=== PATIENT | female | born 1970 | race Caucasian/White ===

== ENCOUNTER 2024-05-30 07:58 | Emergency (ER) | payer BC, SELFPAY ==
[2024-05-30] VITALS (7 sets, daily range): BP systolic 134–146; BP diastolic 79–99; BMI 26.5
--- NOTE | 2024-05-30 08:41 | EDRN ---
Torin LAM currently at the pts bedside
--- NOTE | 2024-05-30 08:52 | ED.GENMED ---
History of Present Illness
General
Chief Complaint: Headache
Source: patient
Time Seen by Provider: 05/30/24 08:28
History of Present Illness
History of Present Illness:
54-year-old female with past medical history of migraines and hyperlipidemia presenting to the ER for evaluation after she woke around 530 this morning with a headache noting it to be left-sided, dull throbbing and nonradiating but was able to go
back to sleep, woke up again around 645 and noticed the left side of her face felt a little tingly with similar sensation in her fingertips and felt as if she were drifting when she attempted to ambulate. Patient states that while most of the
symptoms have improved she currently just feels 'off' and still with the mild headache. Patient states that these symptoms are different than her typical migraine as she notes her migraines are usually ocular accompanied with floaters/visual
disturbance and then experiencing the headache. She did not take anything for her symptoms prior to arrival and is currently denying anything for her headache. No fevers or recent illnesses. She has no other concerns at this time. Family history
noncontributory. Social history was noted for occasional alcohol use, patient states that she did share a bottle of wine with her significant other last night which is not atypical for her.
Past History
Past History
ED Past Medical History: Hypercholesterolemia and Other (migraines)
ED Past Surgical History: Cholecystectomy
Social History
Tobacco: Non-smoker
Alcohol: Occasional
Drug: None
Personal:
Living: with family
Employment: Employed
Review of Systems
Review of Systems
All Other Systems: ROS reviewed and negative except as documented in HPI and ROS
Phy Exam
Physical Exam
Physical Exam:
GENERAL: Alert , in no apparent distress, smiling and pleasant
HEAD: NCAT
EYE: clear conjunctiva
NECK: Supple, no significant adenopathy.
ENT: mmm.
CARDIAC: Regular rate and rhythm, no murmur .
LUNGS: Clear breath sounds bilaterally, no acute respiratory distress, no wheezes/rales/rhonchi
ABDOMEN: Soft, without focal tenderness, no r/g, no cvat
NEUROLOGICAL: Alert and oriented, no focal neuro deficits, DILLON x 4, strength and sensation intact and equal bilateral, no ataxia, no dysmetria, no dysarthria, no facial drooping
SKIN: Warm and dry, skin intact.
MUSCULOSKELETAL: No edema, well perfused.
PSYCH: Normal and appropriate interaction.
Scores
NIH Stroke Score
Level of Consciousness: 0 - Alert
LOC Questions: 0-Answers both correctly
LOC Commands: 0-Performs both correctly
Best Horizontal Gaze: 0-Normal
Visual Mccarty: 0=Normal, no visual loss
Facial Palsy: 0=Normal, symmetrical
Motor - Right Arm: 0=No drift 10 seconds
Motor - Left Arm: 0=No drift 10 seconds
Motor - Right Le-No drift 5 seconds
Motor - Left Le-No drift 5 seconds
Limb Ataxia: 0-Absent
Sensation: 0-Normal
Best Language: 0-No aphasia
Dysarthria: 0-Normal
Extinction and Inattention: 0-No abnormality
Total Score:: 0
Heart Failure Risk
Heart Failure Risk Score: Not Applicable
Heart Score for Chest Pain Patients
STEMI patient?: Not applicable
Withdrawal Assessment of Alcohol
Withdrawal Assessment Completed?: Not applicable
Course
Orders/Labs/Results
Orders:
Orders
05/30/24 08:38
CT Head W/o Iv Contrast Urgent
Comment:
Reason For Exam: headache with numbness/tingling
05/30/24 08:39
Complete Blood Count/With Diff Urgent
Comprehensive Metabolic Panel Urgent
PT/INR [Prothrombin Time] Urgent
PTT Urgent
05/30/24 09:27
0.9% Sodium Chloride 1000 ml [Nss] 1,000 ml IV BOLUS
Diphenhydramine [Benadryl] 25 mg IV NOW STA
Ketorolac [Toradol] 30 mg IV NOW STA
Metoclopramide [Reglan] 10 mg IV NOW STA
Abnormal Lab Results
05/30/24
08:39
RBC 3.98 L 10^6/uL
(4.20-5.40)
MCH 33.9 H pg
(27.0-31.0)
05/30/24 08:39
05/30/24 08:39
Vital Signs
Initial and Last Documented VS:
Initial Vital Signs
Temp Pulse Resp BP Pulse Ox
98.5 F 80 20 146/99 98
05/30/24 07:59 05/30/24 07:59 05/30/24 07:59 05/30/24 07:59 05/30/24 07:59
Last Documented Vital Signs
Temp Pulse Resp BP Pulse Ox
97.5 F 72 15 134/84 98
05/30/24 12:02 05/30/24 12:02 05/30/24 12:02 05/30/24 12:02 05/30/24 12:02
MDM/Problems Addressed
Differential Diagnosis Includes:
migraine, TIA, CVA, ICH, mass/malignancy
MDM/Problems Addressed:
54-year-old female presenting to the ER for evaluation of headache that began this morning around 530, around 645 noticed some facial paresthesia and paresthesia in her fingertips which now seem to be resolved although the patient still notes she
feels 'off'. No focal findings on exam and an NIH score of 0. No stroke alert was called as patient does not have any objective findings. I do suspect symptoms are most likely related to an atypical migraine presentation. Patient declining any
medications for her symptoms presently. Will check labs and CT imaging. Disposition pending.
Chronic conditions affecting care: Neurological disorder (Migraines)
*Radiology
Radiology exam reviewed: radiology read reviewed
*Pulse Oximetry
Patient hypoxic: no
*Critical Care Note
Total Time (30-74mins, 75-104mins- exclusive of procedures): Not Applicable
Patient Management
Escalation/DeEscalation of care consider admission/obs:
He patient CT scans without any significant abnormalities. Upon reevaluation patient was requesting something for headache. Migraine cocktail consisting of Reglan, Benadryl and Toradol ordered. Following these medications patient noted
significant relief and full resolution of symptoms. She feels comfortable being discharged home. Again I do suspect an atypical migraine is the most likely cause of her symptoms today. She is aware of return precautions to the ER. Stable for
discharge home.
ED Attending Note
-
Portions of this chart may have been created with voice recognition software.� Occasional wrong word or��sound alike� substitutions may have occurred due to the inherent limitations of voice recognition software.
Discharge Plan
Departure
Patient Disposition: Home (Routine Discharge)
Date of Disposition: 05/30/24
Time of Disposition: 11:38
Patient with high blood pressure during this ER visit?: Yes
Discharge Problem:
Headache
Instructions: Headache, Adult (DC)
Referrals:
Cristina Eli CRNP [Family Provider] -
Interventions
Interventions:
*Risk Screen - Suicide Last Done: 05/30/24 08:04
*General Assessment Last Done: 05/30/24 12:02
*Neglect/Abuse Screening Last Done: 05/30/24 08:32
*ED- Fall Risk Assessment Last Done: 05/30/24 08:32
*ED COVID-19 Vaccine History Last Done: 05/30/24 08:32
*Nursing Disposition Last Done: 05/30/24 12:02
ED- Neurological Assessment Last Done: 05/30/24 08:32
Discharge Date and Time
Discharge Date/Time: 05/30/24 12:06
Print Language: KENYAN
[2024-05-30 08:55] LABS: % Basophils 0.3 % (0-2); % Eosinophils 0.8 % (0-6); % Immature Granulocytes 0.2 % (0-0.5); % Lymphocytes 47.7 % (20.5-51.1); % Monocytes 5.9 % (1.7-9.3); % Neutrophils 45.1 % (42.2-75.2); Absolute Eosinophils 0.1 10^3/uL (0-0.7); Absolute Lymphocytes 2.9 10^3/uL (1.2-3.4); Absolute Monocytes 0.4 10^3/uL (0.1-0.6); Absolute Neutrophils 2.7 10^3/uL (1.4-6.5); Hematocrit 39.2 % (37.0-47.0); Hemoglobin 13.5 g/dL (12.0-16.0); Mean Corp Hgb Conc. 34.4 g/dL (33.0-37.0); Mean Corpuscular Hgb 33.9 pg (27.0-31.0); Mean Corpuscular Volume 98.5 fL (81.0-99.0); Mean Platelet Volume 9.8 fL (7.4-10.4); Nucleated Red Blood Cells % 0 %; Platelet Count 243 10^3/uL (130-400); Red Blood Cell Count 3.98 10^6/uL (4.20-5.40); Red Cell Dist. Width 11.6 % (11.5-14.5); White Blood Cell Count 6.1 10^3/uL (4.8-10.8)
[2024-05-30 09:04] LABS: ALT (SGPT) 14 U/L (0-35); AST (SGOT) 19 U/L (14-36); Albumin 4.5 g/dl (3.5-5.0); Alkaline Phosphatase 59 U/L (38-126); Blood Urea Nitrogen 13 mg/dl (7-17); Calcium 9.8 mg/dl (8.4-10.2); Carbon Dioxide 23 mmol/L (22-30); Chloride 107 mmol/L (98-107); Estimated Creatinine Clearance 87 ml/min; Glucose 99 mg/dl (70-99); Potassium 4.4 mmol/L (3.5-5.1); Sodium 141 mmol/L (135-145); Total Bilirubin 0.6 mg/dl (0.2-1.3); Total Protein 7.3 g/dl (6.3-8.2); eGFR > 60.00
[2024-05-30] MEDS: TORADOL 30 MG IV (09:34)
[2024-05-30] MEDS: BENADRYL 25 MG IV (09:34)
[2024-05-30 09:35] LABS: INR 0.93; PT 12.7 Sec (11.4-14.6)
[2024-05-30] MEDS: REGLAN 10 MG IV (09:35)
[2024-05-30] MEDS: NSS 1000 IV (09:35)
[2024-05-30 09:36] LABS: APTT 25.8 Sec (23.4-35.0)
== END 2024-05-30 12:06 | disposition home or self-care (01) ==
LOC: EMR 07:58
PROVIDERS: Physician Assistant Medical; EMERGENCY PHYSICIAN Emergency Medicine; FAMILY PHYSICIAN Nurse Practitioner Adult Health
DX: R51.9 Headache, unspecified (principal); E78.00 Pure hypercholesterolemia, unspecified; Z90.49 Acquired absence of other specified parts of digestive tract
CPT/HCPCS: 96374; 96375; 96361; 99284; 70450; 80053; 85025; 85610; 85730

== ENCOUNTER 2024-05-31 15:04 | Inpatient (IN) | payer BC, SELFPAY ==
[2024-05-31] VITALS (11 sets, daily range): BP systolic 147–190; BP diastolic 92–113; BMI 26.5
--- NOTE | 2024-05-31 10:55 | ED.CVA ---
History of Present Illness
General
Chief Complaint: CVA/TIA Symptoms
Time Seen by Provider: 05/31/24 10:52
Onset of Stroke Symptoms
Onset of symptoms known: Yes
Date of onset of symptoms: 05/31/24
Time of onset of symptoms: 06:00
History of Present Illness
History of Present Illness:
Patient is a 54-year-old woman with history of migraines presenting to the emergency department as a prehospital stroke alert. Her last known normal was 6 AM. She states that she was here yesterday for a migraine. She felt better upon discharge
however when she was home around 11 PM developed headache. It worsened in the middle of the night. Around 6 AM she noticed left-sided facial droop with tingling to the left side of her face. She does state that she is on hormone replacement
therapy. She does have migraines however this does not feel typical to her migraines. She usually has ocular migraines and this migraine is to the left side of her head. No nausea vomiting. No double vision. She does feel as if her speech is
still low. Per medics finger glucose check was normal. They did notice mild left-sided facial droop and decreased sensation to the left side of the face.
Past History
Past History
ED Past Medical History: Hypercholesterolemia and Other (migraines)
ED Past Surgical History: Cholecystectomy
Social History
Tobacco: Non-smoker
Alcohol: Occasional
Drug: None
Personal:
Living: with family
Employment: Employed
Phy Exam
Physical Exam
Physical Exam:
GENERAL: in no acute distress
HEENT: normocephalic, extraocular movements intact, moist oral mucosa
NECK: normal inspection
RESPIRATORY: no respiratory distress, clear to auscultation bilaterally
CARDIOVASCULAR: regular rate and rhythm
ABDOMEN/: soft, non-distended, non-tender to palpation, no rebound or guarding
EXTREMITIES: non-tender, no edema/swelling
NEUROLOGIC: alert and oriented x 3, cranial nerves II-XII intact except for mild left-sided facial droop, right upper extremity strength 5/5, left upper extremity strength 5/5, right lower extremity strength 5/5, left lower extremity strength 5/5,
decreased sensations to the left side of the face, normal [id number] and [id number], gait not tested formally
SKIN: warm
NIH Stroke Score
Level of Consciousness: 0 - Alert
LOC questions: 0-Answers both correctly
LOC Commands: 0-Performs both correctly
Best Gaze: 0-Normal
Visual Mccarty: 0=Normal, no visual loss
Facial palsy: 1=Minor paralysis
Motor - Right Arm: 0=No drift 10 seconds
Motor - Left Arm: 0=No drift 10 seconds
Motor - Right Le-No drift 5 seconds
Motor - Left Le-No drift 5 seconds
Limb Ataxia: 0-Absent
Sensation: 1-Mild loss
Best Language: 0-No aphasia
Dysarthria: 0-Normal
Extinction and Inattention: 0-No abnormality
Total Score:: 2
Course
Orders/Labs/Results
Orders:
Orders
05/31/24 10:53
Electrocardiogram (*1) Urgent
Reason for Study: TIA/Stroke
CT HEAD STROKE ALERT W/o Cont Urgent
Comment:
Reason For Exam: left facial, headache
CT HEAD/NECK ANG STROKE ALERT Urgent
Comment:
Reason For Exam: headache, left facial, CTA and CTV
EKG- Treatment ONCE
05/31/24 11:12
Aspirin Chewable [Low Strength Aspirin] 324 mg PO NOW STA
Clopidogrel Bisulfate [Plavix] 300 mg PO NOW STA
05/31/24 11:16
Basic Metabolic Panel Urgent
Complete Blood Count/With Diff Urgent
05/31/24 13:29
Diphenhydramine [Benadryl] 12.5 mg IV NOW STA
Ketorolac [Toradol] 15 mg IV NOW STA
Metoclopramide [Reglan] 10 mg IV NOW STA
Abnormal Lab Results
05/31/24
11:16
RBC 4.02 L 10^6/uL
(4.20-5.40)
MCH 34.3 H pg
(27.0-31.0)
RDW 11.4 L %
(11.5-14.5)
Glucose 114 H mg/dl
(70-99)
05/31/24 11:16
05/31/24 11:16
Vital Signs
Initial and Last Documented VS:
Initial Vital Signs
Pulse Resp BP Pulse Ox
78 20 190/103 98
05/31/24 10:50 05/31/24 10:50 05/31/24 10:50 05/31/24 10:50
Last Documented Vital Signs
Temp Pulse Resp BP Pulse Ox
98.7 F 67 13 162/93 97
05/31/24 10:52 05/31/24 13:00 05/31/24 13:00 05/31/24 11:19 05/31/24 13:00
MDM/Problems Addressed
Differential Diagnosis Includes:
Patient is a 54-year-old woman presenting to the emergency department as a prehospital stroke alert. Vitals are notable for hypertension with a blood pressure in the 190s and exam does show a mild left-sided facial droop with decree sensation to
the left side of the face. Concern for CVA versus complex migraine versus thrombosis given that she is on hormone replacement therapy. Will proceed with stat stroke alert scans as well as CTV. Will check blood work. Patient is 5 hours out from
TNK so will discuss with neurology for a low NIH with concern for ongoing migraine.
*Critical Care Note
Total Time (30-74mins, 75-104mins- exclusive of procedures): Not Applicable
Update Note
Update Note:
Neurology evaluated patient. No TNK indicated at this time given low NIH and out of window. CT scan of the head per my interpretation with no obvious intracranial abnormality. Neuro gave patient intranasal block with bupivacaine and and
unfortunately headache only mildly reduced.
CTA with possible occlusion or dissection to the V3 segment. Discussed with neuro who recommended MRI/MRA possibly outpatient with aspirin Plavix Lipitor.
Patient opted for admission for further workup and imaging. My reevaluation she does state that the migraine came back. Will treat with migraine cocktail as it did help yesterday. Discussed with hospitalist who excepted patient to their service
ED Attending Note
-
Portions of this chart may have been created with voice recognition software.� Occasional wrong word or��sound alike� substitutions may have occurred due to the inherent limitations of voice recognition software.
Discharge Plan
Departure
Prescriptions:
No Action
atorvastatin 20 mg Tablet
20 mg PO HS
estradiol [Alice] 0.05 mg/24 hr Patch Semiweekly
1 patch TRANSDERMAL SUWE
valacyclovir 500 mg Tablet
500 mg PO HS
progesterone micronized 200 mg Capsule
See Rx Instructions .ROUTE .COMPLEX
Patient Comments:
05/31/24: Patient done for this month
Rx Instructions:
200 mg orally HS on days 1-12 each month
ibuprofen [Advil] 200 mg Tablet
400 mg PO Q6HPRN PRN (Reason: mild pain/WATSON)
Referrals:
Cristina Eli CRNP [Family Provider] -
Interventions
Interventions:
*Risk Screen - Suicide Last Done: 05/31/24 11:20
*General Assessment Last Done: 05/31/24 11:20
*Neglect/Abuse Screening Last Done: 05/31/24 11:20
*ED- Fall Risk Assessment Last Done: 05/31/24 11:20
*ED COVID-19 Vaccine History Last Done: 05/31/24 11:20
ED- Pulmonary Assessment Last Done: 05/31/24 11:20
ED- Neurological Assessment Last Done: 05/31/24 11:20
ED- Cardiac Assessment Last Done: 05/31/24 11:20
ED Swallowing Screen Last Done: 05/31/24 11:20
Discharge Date and Time
Print Language: CITIZEN OF [place]
[2024-05-31] MEDS: PLAVIX 300 MG PO (11:23)
[2024-05-31] MEDS: LOW STRENGTH ASPIRIN 324 MG PO (11:23)
[2024-05-31 11:25] LABS: % Basophils 0.2 % (0-2); % Eosinophils 0.1 % (0-6); % Immature Granulocytes 0.1 % (0-0.5); % Lymphocytes 30.6 % (20.5-51.1); % Monocytes 4.9 % (1.7-9.3); % Neutrophils 64.1 % (42.2-75.2); Absolute Lymphocytes 2.5 10^3/uL (1.2-3.4); Absolute Monocytes 0.4 10^3/uL (0.1-0.6); Absolute Neutrophils 5.2 10^3/uL (1.4-6.5); Hematocrit 38.8 % (37.0-47.0); Hemoglobin 13.8 g/dL (12.0-16.0); Mean Corp Hgb Conc. 35.6 g/dL (33.0-37.0); Mean Corpuscular Hgb 34.3 pg (27.0-31.0); Mean Corpuscular Volume 96.5 fL (81.0-99.0); Mean Platelet Volume 10.3 fL (7.4-10.4); Nucleated Red Blood Cells % 0 %; Platelet Count 248 10^3/uL (130-400); Red Blood Cell Count 4.02 10^6/uL (4.20-5.40); Red Cell Dist. Width 11.4 % (11.5-14.5); White Blood Cell Count 8.1 10^3/uL (4.8-10.8)
[2024-05-31 11:38] LABS: Blood Urea Nitrogen 12 mg/dl (7-17); Calcium 9.9 mg/dl (8.4-10.2); Carbon Dioxide 22 mmol/L (22-30); Chloride 104 mmol/L (98-107); Glucose 114 mg/dl (70-99); Potassium 4.5 mmol/L (3.5-5.1); Sodium 136 mmol/L (135-145); eGFR > 60.00
[2024-05-31] MEDS: BENADRYL 12.5 MG IV (13:39)
[2024-05-31] MEDS: TORADOL 15 MG IV (13:40)
[2024-05-31] MEDS: REGLAN 10 MG IV (13:40)
--- NOTE | 2024-05-31 14:19 | HPS.HSE ---
Family Physician
-
Family Physician: Cristina Eli
Chief Complaint
-
Stroke
History of Present Illness
Ms. Cortes is a 54-year-old female with a medical history of migraines, hyperlipidemia, and hot flashes with perimenopause (recently started on hormone replacement therapy) who presented with left facial drooping and numbness associated with ongoing
left-sided headache. She was seen in the emergency department 1 day prior to this admission for left-sided headache which felt better upon discharge. However it acutely worsened in the middle of the night and then around 6:00 this morning she
noticed left-sided facial droop with left facial tingling. She reports that her ongoing headache is distinctly different from her usual migraines. She is also experiencing difficulty balancing when ambulating. She denies vision changes or focal
weakness. Her labs were generally unremarkable. Her blood pressure was elevated with an initial reading of 190/103, no history of hypertension. CT angiography of her head neck showed occlusion or possible dissection of the V3 segment of the
distal left vertebral artery. She was outside of the window for TNK. She was loaded with full-strength aspirin and Plavix. She has been admitted for further evaluation and management of acute stroke.
Medical History
Past Medical History
Past Medical History: Reports Hypercholesterolemia and Other (Migraines, perimenopause (on normal replacement therapy))
Past Surgical History: Reports Cholecystectomy
Social History
Tobacco: Former Smoker (Remotely, smoked for 20 years, quit 15 years ago, approximately 5-pack-year total smoking history)
Alcohol: Occasional
Drug: None
Family History
Family History: Not pertinent
Allergies / Home Medications
Allergies reflects when Allergies were last updated in [facility].
Home Medications with original date entered in [facility]
Allergy/Medication List:
Allergies
Allergy/AdvReac Type Severity Reaction Status Date / Time
No Known Allergies Allergy Unverified 05/30/24 07:59
Home Medications
atorvastatin 20 mg tablet 20 mg PO HS 05/31/24
estradiol 0.05 mg/24 hr semiweekly transdermal patch (Alice) 1 patch transdermal SUWE 05/31/24
ibuprofen 200 mg tablet (Advil) 400 mg PO Q6HPRN PRN mild pain/WATSON 05/31/24
progesterone micronized 200 mg capsule See Rx Instructions .Route .COMPLEX 05/31/24
valacyclovir 500 mg tablet 500 mg PO HS 05/31/24
Review of Systems
-
History Source: Patient
A 12 point ROS was completed and negative except as noted: Yes
Neurological: Reports Dizzy and Headache
Physical Exam
Vital Signs
Vital Signs
Temp Pulse Resp BP Pulse Ox
98.7 F 63 12 147/92 99
05/31/24 10:52 05/31/24 14:00 05/31/24 14:00 05/31/24 14:00 05/31/24 13:45
Physical Exam
General: No Apparent Distress
Laboratory Results
-
05/31/24 11:16
Impression/Plan
-
General: No Apparent Distress, Comfortable and Conversant
HEENT: NormoCephalic, Moist mucous membranes, Atraumatic
Respiratory: Clear and Non Labored Respirations
Cardiac: S1/S2 and Regular Rhythm; No Rub or Gallop
GI: Soft, Non Tender, Non Distended and Normal Bowel Sounds
Musculoskeletal: No Edema, no deformity
Skin: Warm and dry
: NO Davidson
Neuro: Awake, Alert, mild left facial droop
Psych: Calm and Intact Judgment/Insight
Ms. Cortes is a 54-year-old female with a medical history of migraines, hyperlipidemia, and hot flashes with perimenopause (recently started on hormone replacement therapy) who presented with left facial drooping and numbness associated with ongoing
left-sided headache. She was seen in the emergency department 1 day prior to this admission for left-sided headache which felt better upon discharge. However it acutely worsened in the middle of the night and then around 6:00 this morning she
noticed left-sided facial droop with left facial tingling. She reports that her ongoing headache is distinctly different from her usual migraines. She is also experiencing difficulty balancing when ambulating. She denies vision changes or focal
weakness. Her labs were generally unremarkable. Her blood pressure was elevated with an initial reading of 190/103, no history of hypertension. CT angiography of her head neck showed occlusion or possible dissection of the V3 segment of the
distal left vertebral artery. She was outside of the window for TNK. She was loaded with full-strength aspirin and Plavix. She has been admitted for further evaluation and management of acute stroke.
Acute stroke:
-CT angiography of her head neck showed occlusion or possible dissection of the V3 segment of the distal left vertebral artery
- Follow-up MRI brain
- Continue aspirin and Plavix for 3 weeks then aspirin alone
- Continue high intensity statin therapy
- Check echocardiogram, arrhythmia monitoring on telemetry
- Hemoglobin A1c
- Discontinue hormone replacement therapy indefinitely, suspect this may have been a major contributing factor to her acute stroke
- Pain control for headaches
- Follow-up PT/OT
- Appreciate neurology recommendations
- Permissive hypertension for first 24 to 48 hours, IV enalaprilat as needed for SBP greater than 220 or DBP greater than 120
CODE STATUS: Full code
--- NOTE | 2024-05-31 14:40 | CM ---
ED CM met with pt bedside
Pt resides with her spouse in a bi-level house with 4 ABBIE
4 steps up to main living/sleeping/bathing area and 4 ABBIE down to rec room
Pt is indep, drives +, denies use of DMEs
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
Pt denies financial insecurities
PCP- Cristina O'Tc
Rx- [facility]
Discharge Disposition- anticipate home, no needs
--- NOTE | 2024-05-31 15:46 | CON.NEURO ---
Neuro Assessment/Plan
Assessment
54 year old woman, presenting with migraines and new left LMN facial weakness/numbness
ddx including migraine aura or stroke/TIA
Not a TNK candidate, duration of symptoms
CT head normal
CTA head/neck imgs and report reviewed, agree no significant atherosclerosis, dominant right vertebral, left vertebral V3 termination ddx including congenital hypoplasia, stenosis, or dissection
I performed SPG block with transient improvement of headache, and within the hour her left facial droop and numbness resolved except for a left ptosis. As this is still not resolved, and her headache returning, and a possible left vertebral
stenosis/dissection, she will be admitted for further workup, though I discussed with her in any case the treatment is likely DAPT x90 days and Lipitor 40
Plan
DAPT x90 days and Lipitor 40
admit for MRI brain without contrast, MRA neck with contrast
Consultation
Order
Date of Consultation: 05/31/24
Requesting Provider: Daniel Webb
Reason for Consult: Stroke alert
Subjective/Objective
Subjective Data
Date of Service: May 31, 2024
Patient is a 54-year-old woman with history of migraines presenting to the emergency department as a prehospital stroke alert. Her last known normal was 6 AM. She states that she was here yesterday for a migraine. She felt better upon discharge
however when she was home around 11 PM developed headache. It worsened in the middle of the night. Around 6 AM she noticed left-sided facial droop with tingling to the left side of her face. She does state that she is on hormone replacement
therapy. She does have migraines however this does not feel typical to her migraines. She usually has ocular migraines and this migraine is to the left side of her head. No nausea vomiting. No double vision. She does feel as if her speech is
still low. Per medics finger glucose check was normal. They did notice mild left-sided facial droop and decreased sensation to the left side of the face.
Objective Data
Vital Signs
Temp Pulse Resp BP Pulse Ox
37.1 C 69 12 149/101 98
05/31/24 10:52 05/31/24 15:15 05/31/24 15:15 05/31/24 15:07 05/31/24 15:15
Lab Results
05/31/24 11:16
Sodium 136 mmol/L (135-145) 05/31/24 11:16
Potassium 4.5 mmol/L (3.5-5.1) 05/31/24 11:16
BUN 12 mg/dl (7-17) 05/31/24 11:16
Glucose 114 mg/dl (70-99) H 05/31/24 11:16
Calcium 9.9 mg/dl (8.4-10.2) 05/31/24 11:16
Patient Allergies
No Known Allergies Allergy (Unverified 05/30/24 07:59)
Physical Exam
-
AAOx3, speech clear, language intact
VFF, EOMI, L LMN facial droop, facial sensation intact to pin
full strength b/l UE/LE
sensation intact to touch/pin
DTR normal, symmetric
Medications
-
Active Medications
Generic Name Dose Route Start Last Admin
Trade Name Freq PRN Reason Stop Dose Admin
Acetaminophen 650 mg 05/31/24 14:12
Acetaminophen 650 Mg Rectal Suppository RECTAL 06/28/24 14:11
Q4HPRN PRN
WATSON, mild pain, or temp >100.4F
Acetaminophen 650 mg 05/31/24 14:12
Acetaminophen 325 Mg Tablet PO 06/28/24 14:11
Q4HPRN PRN
WATSON, mild pain, or temp >100.4F
Aspirin 81 mg 06/01/24 08:00
Aspirin 81 Mg Chewable Tablet PO 06/29/24 07:59
DAILY OLESYA
Atorvastatin Calcium 40 mg 05/31/24 18:00
Atorvastatin (Lipitor) 40 Mg Tablet PO 06/28/24 17:59
QPM OLESYA
Clopidogrel Bisulfate 75 mg 06/01/24 08:00
Clopidogrel 75 Mg Tablet PO 06/29/24 07:59
DAILY OLESYA
Enalaprilat 0.625 mg 05/31/24 14:57
Enalaprilat 1.25 Mg/Ml Vial IV 06/28/24 14:56
Q6HPRN PRN
SBP >220 or DBP >120
Enoxaparin Sodium 40 mg 05/31/24 18:00
Enoxaparin Sodium 40 Mg/0.4 Ml Syringe SC 06/28/24 17:59
QPM OLESYA
Home Medications
�Medication �Instructions �Recorded
atorvastatin 20 mg tablet 20 mg PO HS 05/31/24
estradiol 0.05 mg/24 hr semiweekly 1 patch transdermal SUWE 05/31/24
transdermal patch (Alice)
ibuprofen 200 mg tablet (Advil) 400 mg PO Q6HPRN PRN mild pain/WATSON 05/31/24
progesterone micronized 200 mg See Rx Instructions .Route .COMPLEX 05/31/24
capsule
valacyclovir 500 mg tablet 500 mg PO HS 05/31/24
--- NOTE | 2024-05-31 16:15 | PTOTSP ---
Speech therapy
Presentation: Patient's speech and language appeared to be WNL during conversation. Patient stated she has been having intermittent moments of slower speech; not observed. Slight left sided facial droop/ eye droop noted.
Swallowing Function: PARTS INSPECTOR observed patient with several bites of cracker and sips of thin liquids (thin) in which patient appeared to tolerate as she did not exhibit any overt clinical s/sx of aspiration or difficulty with mastication/ manipulation.
Patient denied deficits.
Recommendations:
1) Regular consistency solids and thin liquids
2) Aspiration precautions
3) Medications as tolerated
Plan: PARTS INSPECTOR will continue to follow to ensure tolerance; pending hospitalization.
[2024-05-31] MEDS: TYLENOL 650 MG PO (16:39)
--- NOTE | 2024-05-31 16:49 | PTCARENOTE ---
Received patient from ED via stretcher approx 16:00. Pt AAOX3. Pox: 96% RA. Pt c/o headache 06/27. Medicated with Tylenol PO. See MAR. Family at bedside. Call cottrell within reach. Plan of care ongoing.
[2024-05-31] MEDS: LIPITOR 40 MG PO (17:30)
[2024-05-31] MEDS: LOVENOX 40 MG SC (17:30)
[2024-05-31 18:16] LABS: ALT (SGPT) 13 U/L (0-35); AST (SGOT) 17 U/L (14-36); Albumin 4.2 g/dl (3.5-5.0); Blood Urea Nitrogen 9 mg/dl (7-17); Calcium 9.6 mg/dl (8.4-10.2); Carbon Dioxide 21 mmol/L (22-30); Chloride 106 mmol/L (98-107); Estimated Creatinine Clearance 76 ml/min; Glucose 122 mg/dl (70-99); Potassium 3.9 mmol/L (3.5-5.1); Sodium 136 mmol/L (135-145); Total Bilirubin 0.5 mg/dl (0.2-1.3); Total Protein 6.9 g/dl (6.3-8.2); eGFR > 60.00
[2024-05-31 18:26] LABS: Alkaline Phosphatase 69 U/L (38-126)
[2024-05-31] MEDS: XANAX 0.25 MG PO (20:57)
--- NOTE | 2024-05-31 21:00 | PTCARENOTE ---
Addendum entered by Lillie Segundo 06/01/24 06:16:
0400: Pt stating 'pressure behind eyes and swirly vision, difficulty focusing'. - Denies blurred vision, states dizziness has resolved. Repeated NIH- remains a 2. SENIOR SOFTWARE QA ANALYST aware.
Original Note:
Pt stating increased dizziness and anxiety. NIH completed-2 mild L side facial droop, tingling at corner of L sd mouth. BP 181/113 house SENIOR SOFTWARE QA ANALYST aware, Order for xanax- Given per order.
[2024-06-01] VITALS (7 sets, daily range): BP systolic 116–169; BP diastolic 61–109
[2024-06-01 07:03] LABS: Hematocrit 38.3 % (37.0-47.0); Hemoglobin 13.6 g/dL (12.0-16.0); Mean Corp Hgb Conc. 35.5 g/dL (33.0-37.0); Mean Corpuscular Hgb 34.3 pg (27.0-31.0); Mean Corpuscular Volume 96.7 fL (81.0-99.0); Mean Platelet Volume 10.3 fL (7.4-10.4); Platelet Count 247 10^3/uL (130-400); Red Blood Cell Count 3.96 10^6/uL (4.20-5.40); Red Cell Dist. Width 11.6 % (11.5-14.5); White Blood Cell Count 6.6 10^3/uL (4.8-10.8)
[2024-06-01 07:43] LABS: HDL Cholesterol 53 mg/dl; LDL Cholesterol, Calculated 84 mg/dl; Total Cholesterol 164 mg/dl (50-199); Triglyceride 137 mg/dl (10-149); Very Low Density Lipoprotein 27 mg/dl (0-30)
[2024-06-01] MEDS: LOW STRENGTH ASPIRIN 81 MG PO (08:06)
[2024-06-01] MEDS: PLAVIX 75 MG PO (08:06)
[2024-06-01] MEDS: XANAX 0.25 MG PO ×2 (08:21→21:39)
[2024-06-01 09:09] LABS: Glycohemoglobin (HgbA1c) 5.3 % (4.0-5.6)
--- NOTE | 2024-06-01 11:31 | CON.NEURO ---
Neuro Assessment/Plan
Assessment
54 year old woman, presenting with migraines and new left LMN facial weakness/numbness
ddx including migraine aura or stroke/TIA
Not a TNK candidate, duration of symptoms
CT head normal
CTA head/neck imgs and report reviewed, agree no significant atherosclerosis, dominant right vertebral, left vertebral V3 termination ddx including congenital hypoplasia, stenosis, or dissection
I performed SPG block with transient improvement of headache, and within the hour her left facial droop and numbness resolved except for a left ptosis. As this is still not resolved, and her headache returning, and a possible left vertebral
stenosis/dissection, she will be admitted for further workup, though I discussed with her in any case the treatment is likely DAPT x90 days and Lipitor 40
Plan
DAPT x90 days and Lipitor 40
admit for MRI brain without contrast, MRA neck with contrast
Consultation
Order
Date of Consultation: 06/01/24
Neurology follow-up note
HPI: This is a 54-year-old woman who presented to [facility] on 05/31/2024 with headache, transient left facial weakness and vertigo.
The patient states that her headache and facial weakness have resolved however she continues to have vertigo. No reports of dysphagia, dysphonia change in vision or strength.
VS by EMS: 185/108, 78, afebrile.
ER VS: 146/99-181/113, 80, afebrile
EKG:NSR, QTc Int : 447 ms
PDMP: No recently prescribed medications
Labs: Glucose�114, LDL�84.
Ms. Cortes was treated with ketorolac 15, metoclopramide 10 and Benadryl 12.5 mg as well as alprazolam 0.25 mg. She was started on aspirin and Plavix
Brain MRI without omayra (06/01/2024)�acute left lateral medullary infarct
TTE-Interatrial septum is intact with no evidence of shunting by color flow Doppler. No intracardiac mass or thrombus formation seen.
PMH: Migraine with aura, DLP, menopause on HRT, rhytids on Botox therapy
SH:; non-smoker
FH:no family history of stroke
All:NKDA
ROS: Constitutional: Negative. Negative for chills, fever and unexpected weight change.
HENT: Negative for ear pain, hearing loss, tinnitus and trouble swallowing.
Eyes: Negative. Negative for photophobia, pain and visual disturbance.
Respiratory: Negative for cough, choking and shortness of breath.
Cardiovascular: Negative for chest pain, palpitations and leg swelling.
Gastrointestinal: Negative for abdominal pain and vomiting.
Endocrine: Negative. Negative for cold intolerance.
Genitourinary: Negative for dysuria, flank pain and urgency.
Musculoskeletal: Negative for back pain, gait problem, neck pain and neck stiffness.
Skin: Negative for rash.
Allergic/Immunologic: Negative. Negative for immunocompromised state.
Neurological: Positive for vertigo, transient facial weakness
Psychiatric/Behavioral: Negative for behavioral problems, confusion and hallucinations.
General: Well developed. In no acute distress.
Cardio: Regular rate and rhythm without murmur. Extremities are without cyanosis or edema.
Neuro:
Mental Status: Alert, oriented to person, place, and date. Normal attention and recall. Good fund of knowledge. Follows complex requests across the midline. Comprehension, naming, and repetition intact. Immediate and delayed recall 3/3.
Cranial Nerves: Pupils are equally round and reactive to light. EOMs full. Visual [place] full to confrontation. No ptosis. No nystagmus. V1-V3 intact to light touch and pinprick bilaterally, symmetric. Face symmetric. Normal hearing AU. The
palate elevated well. SCMs and traps 5/5. Tongue midline. No dysarthria.
Motor: Normal bulk and tone. No pronator or arm drift. Strength 5/5 throughout. No clonus.
Coordination: No dysmetria or tremor.
Gait: deferred
Assessment and Plan:
I. 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
II. 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
III. Hypertensive emergency
-Avoid cerebral hypoperfusion
- Start meclizine 25 mg Q8 h
-Continue aspirin 81 mg lifelong and Plavix 75 mg for 3 weeks
-Outpatient Holter monitor and cardiology follow-up
-PT
- Please recall neurology service with any questions or concerns
left vertebral V3 termination ddx including congenital hypoplasia, stenosis, or dissection
I personally reviewed all radiology and labs along with past medical records pertinent to current medical problems. Total time spent in patient care is 45 minutes.
Thank you for allowing us to participate in the care of this patient. Please do not hesitate to contact us with any questions or concerns.
Subjective/Objective
Subjective Data
Date of Service: June 01, 2024
Objective Data
Vital Signs
Temp Pulse Resp BP Pulse Ox
37.0 C 69 20 116/61 98
06/01/24 11:12 06/01/24 11:12 06/01/24 11:12 06/01/24 11:12 06/01/24 11:12
Lab Results
06/01/24 06:42
05/31/24 17:45
Sodium 136 mmol/L (135-145) 05/31/24 17:45
Potassium 3.9 mmol/L (3.5-5.1) 05/31/24 17:45
BUN 9 mg/dl (7-17) 05/31/24 17:45
Glucose 122 mg/dl (70-99) H 05/31/24 17:45
Calcium 9.6 mg/dl (8.4-10.2) 05/31/24 17:45
LDL Cholesterol, Calc 84 mg/dl 06/01/24 06:42
Patient Allergies
No Known Allergies Allergy (Unverified 05/30/24 07:59)
Medications
-
Active Medications
Generic Name Dose Route Start Last Admin
Trade Name Freq PRN Reason Stop Dose Admin
Acetaminophen 650 mg 05/31/24 14:12
Acetaminophen 650 Mg Rectal Suppository RECTAL 06/28/24 14:11
Q4HPRN PRN
WATSON, mild pain, or temp >100.4F
Acetaminophen 650 mg 05/31/24 14:12 05/31/24 16:39
Acetaminophen 325 Mg Tablet PO 06/28/24 14:11 650 mg
Q4HPRN PRN Administration
WATSON, mild pain, or temp >100.4F
Alprazolam 0.25 mg 05/31/24 20:26 06/01/24 08:21
Alprazolam 0.25 Mg Tablet PO 06/28/24 20:25 0.25 mg
Q6HPRN PRN Administration
anxiety
Aspirin 81 mg 06/01/24 08:00 06/01/24 08:06
Aspirin 81 Mg Chewable Tablet PO 06/29/24 07:59 81 mg
DAILY OLESYA Administration
Atorvastatin Calcium 40 mg 05/31/24 18:00 05/31/24 17:30
Atorvastatin (Lipitor) 40 Mg Tablet PO 06/28/24 17:59 40 mg
QPM OLESYA Administration
Clopidogrel Bisulfate 75 mg 06/01/24 08:00 06/01/24 08:06
Clopidogrel 75 Mg Tablet PO 06/29/24 07:59 75 mg
DAILY OLESYA Administration
Enalaprilat 0.625 mg 05/31/24 14:57
Enalaprilat 1.25 Mg/Ml Vial IV 06/28/24 14:56
Q6HPRN PRN
SBP >220 or DBP >120
Enoxaparin Sodium 40 mg 05/31/24 18:00 05/31/24 17:30
Enoxaparin Sodium 40 Mg/0.4 Ml Syringe SC 06/28/24 17:59 40 mg
QPM OLESYA Administration
Home Medications
�Medication �Instructions �Recorded
atorvastatin 20 mg tablet 20 mg PO HS 05/31/24
estradiol 0.05 mg/24 hr semiweekly 1 patch transdermal SUWE 05/31/24
transdermal patch (Alice)
ibuprofen 200 mg tablet (Advil) 400 mg PO Q6HPRN PRN mild pain/WATSON 05/31/24
progesterone micronized 200 mg See Rx Instructions .Route .COMPLEX 05/31/24
capsule
valacyclovir 500 mg tablet 500 mg PO HS 05/31/24
Vital Signs and Labs
-
Vital Signs and Labs:
Vital Signs
Temp Pulse Resp BP Pulse Ox
37.0 C 69 20 116/61 98
06/01/24 11:12 06/01/24 11:12 06/01/24 11:12 06/01/24 11:12 06/01/24 11:12
Lab Results
06/01/24 06:42
05/31/24 17:45
Sodium 136 mmol/L (135-145) 05/31/24 17:45
Potassium 3.9 mmol/L (3.5-5.1) 05/31/24 17:45
BUN 9 mg/dl (7-17) 05/31/24 17:45
Glucose 122 mg/dl (70-99) H 05/31/24 17:45
Calcium 9.6 mg/dl (8.4-10.2) 05/31/24 17:45
LDL Cholesterol, Calc 84 mg/dl 06/01/24 06:42
Medications
-
Medications:
Generic Name Dose Route Start Last Admin
Trade Name Freq PRN Reason Stop Dose Admin
Acetaminophen 650 mg 05/31/24 14:12
Acetaminophen 650 Mg Rectal Suppository RECTAL 06/28/24 14:11
Q4HPRN PRN
WATSON, mild pain, or temp >100.4F
Acetaminophen 650 mg 05/31/24 14:12 05/31/24 16:39
Acetaminophen 325 Mg Tablet PO 06/28/24 14:11 650 mg
Q4HPRN PRN Administration
WATSON, mild pain, or temp >100.4F
Alprazolam 0.25 mg 05/31/24 20:26 06/01/24 08:21
Alprazolam 0.25 Mg Tablet PO 06/28/24 20:25 0.25 mg
Q6HPRN PRN Administration
anxiety
Aspirin 81 mg 06/01/24 08:00 06/01/24 08:06
Aspirin 81 Mg Chewable Tablet PO 06/29/24 07:59 81 mg
DAILY OLESYA Administration
Atorvastatin Calcium 40 mg 05/31/24 18:00 05/31/24 17:30
Atorvastatin (Lipitor) 40 Mg Tablet PO 06/28/24 17:59 40 mg
QPM OLESYA Administration
Clopidogrel Bisulfate 75 mg 06/01/24 08:00 06/01/24 08:06
Clopidogrel 75 Mg Tablet PO 06/29/24 07:59 75 mg
DAILY OLESYA Administration
Enalaprilat 0.625 mg 05/31/24 14:57
Enalaprilat 1.25 Mg/Ml Vial IV 06/28/24 14:56
Q6HPRN PRN
SBP >220 or DBP >120
Enoxaparin Sodium 40 mg 05/31/24 18:00 05/31/24 17:30
Enoxaparin Sodium 40 Mg/0.4 Ml Syringe SC 06/28/24 17:59 40 mg
QPM OLESYA Administration
Home Medications
-
Home Medications
atorvastatin 20 mg tablet 20 mg PO HS 05/31/24
estradiol 0.05 mg/24 hr semiweekly transdermal patch (Alice) 1 patch transdermal SUWE 05/31/24
ibuprofen 200 mg tablet (Advil) 400 mg PO Q6HPRN PRN mild pain/WATSON 05/31/24
progesterone micronized 200 mg capsule See Rx Instructions .Route .COMPLEX 05/31/24
valacyclovir 500 mg tablet 500 mg PO HS 05/31/24
--- NOTE | 2024-06-01 14:04 | W.PN.HOSP.TC ---
Today's Communication/Plan
-
DC planning
Increase Lipitor dose
Assessment / Plan
Assessment / Plan
Ms. Cortes is a 54-year-old female with a medical history of migraines, hyperlipidemia, and hot flashes with perimenopause (recently started on hormone replacement therapy) who presented with left facial drooping and numbness associated with ongoing
left-sided headache. She was seen in the emergency department 1 day prior to this admission for left-sided headache which felt better upon discharge. However it acutely worsened in the middle of the night and then around 6:00 this morning she
noticed left-sided facial droop with left facial tingling. She reports that her ongoing headache is distinctly different from her usual migraines. She is also experiencing difficulty balancing when ambulating. She denies vision changes or focal
weakness. Her labs were generally unremarkable. Her blood pressure was elevated with an initial reading of 190/103, no history of hypertension. CT angiography of her head neck showed occlusion or possible dissection of the V3 segment of the
distal left vertebral artery. She was outside of the window for TNK. She was loaded with full-strength aspirin and Plavix. She has been admitted for further evaluation and management of acute stroke.
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
Concern for arterial thrombosis. She is on estrogen/progesterone replacement therapy which could predispose her for arterial thrombosis. Also need to check for thrombophilia screen as an outpatient. Can also be related .
Hemoglobin A1c 5.3. No evidence of A-fib so far. Echo with no wall heart disease
-Discussed with neurology today- Continue aspirin and Plavix for 3 weeks then aspirin alone
-LDL 84-continue high intensity statin therapy-increase the dose to 40mg of Lipitor( she takes it at home)
- Discontinue hormone replacement therapy indefinitely, suspect this may have been a major contributing factor to her acute stroke
- Pain control for headaches
- Follow-up PT/OT
- Appreciate neurology recommendations
Patient symptomatic with dizziness. PT report noted. Recommends outpatient therapy.
If she remains stable with PT DC home tomorrow.
CODE STATUS: Full code
Went over the patient and the the findings on the MRI.
Discussed with neurology today.
Total time spent on today's encounter was 52 minutes which included time spent in counseling the patient/family regarding diagnosis and treatment plan as listed above, goals of care, and symptom management. Case was discussed with nursing staff,
specialists, and care coordinators/case management. All labs and imaging personally reviewed by me. Remainder the time spent in detailed review of previous records, lab data, imaging, and other medical provider documentation.
Anticipated Discharge: Within 24 hours
Subjective/Interval History
-
Date of Service: June 01, 2024
Still feeling dizzy; not like vertigo but just dizzy. Makes it difficult for her to ambulate.
No WATSON today.
Left face droop is better.
Objective Data
-
Labs:
Laboratory Results
06/01/24
06:42
WBC 6.6
Hgb 13.6
Hct 38.3
Plt Count 247
Vital Signs:
Vital Signs
Temp Pulse Resp BP Pulse Ox
98.1 F 66 20 164/104 100
06/01/24 12:41 06/01/24 12:41 06/01/24 12:41 06/01/24 12:41 06/01/24 12:41
I&O
05/31/24 06/01/24 06/02/24
06:59 06:59 06:59
Intake Total 540 / 540
Balance 540 / 540
Review of Systems
-
Constitutional: Denies Fever
Respiratory: Denies Trouble Breathing
Cardiac: Denies Chest Pain or Palpitations
Abdomen/GI: Denies Abdominal Pain, Nausea or Vomiting
Neuro: Reports Dizzy
Physical Exam
-
General: No Apparent Distress
Respiratory: Clear to Auscultation and Non Labored Respirations; Negative Accessory Resp Muscle Use
Cardiac: Regular Rhythm and S1/S2
Neuro: AO x 3, No Motor Deficits and Facial Droop (subtle left face asymmetry noted); Negative Tremors or Slurred Speech
Psych: Calm; Negative Confused
Data Reviewed
-
MRI: Report Reviewed by me (MRI Brain and MRA head and neck)
Labs: Labs Reviewed by me
[2024-06-01] MEDS: LOVENOX 40 MG SC (19:04)
[2024-06-01] MEDS: LIPITOR 40 MG PO (19:05)
--- NOTE | 2024-06-01 19:14 | PTCARENOTE ---
Received patient this am AAOx3. NIH-2 pt complains of dizziness intermittently. Pt off unit today for MRI and Echo. Tolerated diet well. Made patient comfortable. Cont to assess patient status.
[2024-06-02] VITALS (7 sets, daily range): BP systolic 121–160; BP diastolic 81–102; PULSE 83; O2SAT 98
[2024-06-02] MEDS: PLAVIX 75 MG PO (08:12)
[2024-06-02] MEDS: LOW STRENGTH ASPIRIN 81 MG PO (08:12)
[2024-06-02] MEDS: TYLENOL 650 MG PO (08:39)
[2024-06-02] MEDS: FLUSH (NSS) 1 FLUSH IV (08:40)
--- NOTE | 2024-06-02 12:05 | W.PN.HOSP.TC ---
Today's Communication/Plan
-
cw current tx
DC planning when ok from PT standpoint
Assessment / Plan
Assessment / Plan
Ms. Cortes is a 54-year-old female with a medical history of migraines, hyperlipidemia, and hot flashes with perimenopause (recently started on hormone replacement therapy) who presented with left facial drooping and numbness associated with ongoing
left-sided headache. She was seen in the emergency department 1 day prior to this admission for left-sided headache which felt better upon discharge. However it acutely worsened in the middle of the night and then around 6:00 this morning she
noticed left-sided facial droop with left facial tingling. She reports that her ongoing headache is distinctly different from her usual migraines. She is also experiencing difficulty balancing when ambulating. She denies vision changes or focal
weakness. Her labs were generally unremarkable. Her blood pressure was elevated with an initial reading of 190/103, no history of hypertension. CT angiography of her head neck showed occlusion or possible dissection of the V3 segment of the
distal left vertebral artery. She was outside of the window for TNK. She was loaded with full-strength aspirin and Plavix. She has been admitted for further evaluation and management of acute stroke.
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
Concern for arterial thrombosis. She is on estrogen/progesterone replacement therapy which could predispose her for arterial thrombosis. Also need to check for thrombophilia screen as an outpatient. Can also be related .
Hemoglobin A1c 5.3. No evidence of A-fib so far. Echo with no valvular heart disease
-Discussed with neurology 06/01- Continue aspirin and Plavix for 3 weeks then aspirin alone
-LDL 84-continue high intensity statin therapy-increase the dose to 40mg of Lipitor( she takes it at home)
- Discontinue hormone replacement therapy indefinitely, suspect this may have been a major contributing factor to her acute stroke
- Pain control for headaches
- Add Antivert as needed for dizziness
- Follow-up PT/OT
- Appreciate neurology recommendations-will arrange outpatient Holter through cardiology as neurology raises the question for embolic etiology in the differential.
DC home when stable from PT standpoint
CODE STATUS: Full code
Anticipated Discharge: Within 24 hours
Subjective/Interval History
-
Date of Service: June 02, 2024
Improved dizziness. Still unsteady on the feet. Needing walker to walk for the PT today. Has not done stairs yet today.
No headache.
No motor weakness.
Objective Data
-
Vital Signs:
Vital Signs
Temp Pulse Resp BP Pulse Ox
98.3 F 72 18 160/95 98
06/02/24 11:26 06/02/24 11:26 06/02/24 11:26 06/02/24 11:26 06/02/24 11:26
I&O
06/01/24 06/02/24 06/03/24
06:59 06:59 06:59
Intake Total 540 / 540 960 / 960
Balance 540 / 540 960 / 960
Physical Exam
-
Respiratory: Non Labored Respirations; Negative Accessory Resp Muscle Use
Cardiac: Regular Rhythm and S1/S2; Negative Tachycardic
Neuro: AO x 3, No Motor Deficits and Facial Droop (Subtle left facial asymmetry; improved according to ); Negative Slurred Speech
Psych: Calm
Data Reviewed
-
Labs: Labs Reviewed by me
--- NOTE | 2024-06-02 12:28 | CM ---
Chart reviewed. Plan is for d/c once cleared by PT. PT rec OP therapy yesterday, will need script if this continues to be the recommendation.
Per chart, improved dizziness. Still unsteady on the feet. Needing walker to walk for the PT today. Has not done stairs yet today.
Plan: Home when stable
[2024-06-02] MEDS: LIPITOR 40 MG PO (18:03)
[2024-06-02] MEDS: LOVENOX 40 MG SC (18:03)
[2024-06-02] MEDS: XANAX 0.25 MG PO (21:51)
[2024-06-03 03:51] VITALS: BP 114/78
[2024-06-03 07:45] VITALS: BP 133/90
[2024-06-03] MEDS: LOW STRENGTH ASPIRIN 81 MG PO (08:12)
[2024-06-03] MEDS: PLAVIX 75 MG PO (08:12)
[2024-06-03] MEDS: FLUSH (NSS) 1 FLUSH IV (08:14)
[2024-06-03 11:15] VITALS: BP 154/90
[2024-06-03] MEDS: TYLENOL 650 MG PO (12:37)
--- NOTE | 2024-06-03 14:13 | W.PN.HOSP.TC ---
Today's Communication/Plan
-
DC
Assessment / Plan
Assessment / Plan
Ms. Cortes is a 54-year-old female with a medical history of migraines, hyperlipidemia, and hot flashes with perimenopause (recently started on hormone replacement therapy) who presented with left facial drooping and numbness associated with ongoing
left-sided headache. She was seen in the emergency department 1 day prior to this admission for left-sided headache which felt better upon discharge. However it acutely worsened in the middle of the night and then around 6:00 this morning she
noticed left-sided facial droop with left facial tingling. She reports that her ongoing headache is distinctly different from her usual migraines. She is also experiencing difficulty balancing when ambulating. She denies vision changes or focal
weakness. Her labs were generally unremarkable. Her blood pressure was elevated with an initial reading of 190/103, no history of hypertension. CT angiography of her head neck showed occlusion or possible dissection of the V3 segment of the
distal left vertebral artery. She was outside of the window for TNK. She was loaded with full-strength aspirin and Plavix. She has been admitted for further evaluation and management of acute stroke.
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
Concern for arterial thrombosis. She is on estrogen/progesterone replacement therapy which could predispose her for arterial thrombosis. Also need to check for thrombophilia screen as an outpatient. Can also be related .
Hemoglobin A1c 5.3. No evidence of A-fib so far. Echo with no valvular heart disease. Cardiology arranging Holter as an outpatient.
-Discussed with neurology 06/01- Continue aspirin and Plavix for 3 weeks then aspirin alone
-LDL 84-continue high intensity statin therapy-increase the dose to 40mg of Lipitor( she takes it at home)
- Discontinue hormone replacement therapy indefinitely, suspect this may have been a major contributing factor to her acute stroke
- Add Antivert as needed for dizziness-not needing so far.
- Follow-up PT/OT-recs noted-outpatient therapy recommended
- Appreciate neurology recommendations-will arrange outpatient Holter through cardiology as neurology raises the question for embolic etiology in the differential.
Cleared from therapy standpoint and as well as medically stable for discharge home today.
CODE STATUS: Full code
Total time of discharge 32 minutes
Anticipated Discharge: Today
Subjective/Interval History
-
Date of Service: June 03, 2024
Continued improvement with the dizziness. Feeling much better. Did well with the PT.
No new symptoms.
Objective Data
-
Vital Signs:
Vital Signs
Temp Pulse Resp BP Pulse Ox
97.6 F 72 16 154/90 98
06/03/24 11:15 06/03/24 11:15 06/03/24 11:15 06/03/24 11:15 06/03/24 11:15
I&O
06/02/24 06/03/24 06/04/24
06:59 06:59 06:59
Intake Total 960 / 960 480 / 480
Balance 960 / 960 480 / 480
Review of Systems
-
Constitutional: Denies Fever
Respiratory: Denies Trouble Breathing
Cardiac: Denies Chest Pain
Abdomen/GI: Denies Abdominal Pain, Nausea or Vomiting
Neuro: Denies Dizzy
Physical Exam
-
General: Comfortable
Respiratory: Non Labored Respirations; Negative Accessory Resp Muscle Use
Cardiac: Regular Rhythm and S1/S2
Neuro: AO x 3 and No Motor Deficits; Negative Tremors, Slurred Speech or Facial Droop (Improved left facial asymmetry)
Psych: Calm; Negative Confused
--- NOTE | 2024-06-03 15:09 | CM ---
Patient stable for d/c today. Therapy cont to recommend OP therapy, patient will also be evaluated for OT and ST, script on chart.
Therapy issued patient RW at bedside, script provided.
CM met w/ patient and spouse bedside, agreeable to d/c and OP therapies/evaluations
Plan: Home; OP PT/OT/ST
[2024-06-03 15:45] VITALS: BP 155/96
--- NOTE | 2024-06-04 17:04 | W.DCSUMMARY ---
Discharge Summary
Discharge Data
Date of Admission: 05/31/24
Date of Discharge: 06/03/24
-
Pending Results: No
Hospital Course
Primary diagnosis:
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
Secondary diagnosis:
Migraine headaches
Lipidemia
Hot flashes with perimenopausal on hormonal replacement therapy
Hospital course:
54-year-old lady presented with left facial droop and numbness associated with the left-sided headache. Prior to this she was seen in the ER for left-sided headache but then after discharge in the night started to have left-sided facial droop with
left facial twitching.
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 Concern is for arterial thrombosis. She is on hormone
replacement therapy which could be one of the factor and she was advised to discontinue that.. She would need a thrombophilia screen as an outpatient. She is known to have hyperlipidemia could be atherosclerotic thrombus. Her LDL was 84 so her
statin dose was increased to Lipitor 40 mg from 20 mg. Her hemoglobin A1c was 5.3. There was no evidence of A-fib but with arterial thrombosis referral was given to cardiology who would set up outpatient Holter monitor. She had an echocardiogram
which showed no evidence of significant valvular disease or intra cardiac thrombus. Blood pressure was under goal and did not need any treatments. She was given meclizine as needed for her dizziness from stroke but she did not need it. She was
seen by PT OT who recommended outpatient therapies. She was also given speech therapy referral. She was tolerating a regular diet here.
With regards to stroke she was put on aspirin and Plavix with 3 weeks and then discontinue aspirin. She was advised to follow-up with neurology as OP
Consultants on board:
Neurology Michelle Henson
Discharge Plan
-
Patient Disposition: Home with Home Care
Discharge Diagnosis/Procedures: Acute stroke
Diet: Low Cholesterol
Activity: As tolerated
Driving Restrictions: Not until seen by your Dr
Bathing Restrictions: None
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
Other Services: PT, OT and ST
Referrals:
Michelle Coe MD [Active] - in one month
Cristina Eli CRNP [Family Provider] - in less than 1 week
Alpesh Moctezuma DO [Active] - 06/23/24 7:40 am (You have a cardiology appointment at the [place] office to review results of your monitor. Please call with questions)
Prescriptions:
New
atorvastatin 40 mg Tablet
40 mg PO QPM Qty: 30 0RF
clopidogrel 75 mg Tablet
75 mg PO DAILY Qty: 18 0RF
meclizine 25 mg Tablet
25 mg PO Q8HPRN PRN (Reason: dizziness) Qty: 15 0RF
aspirin 81 mg Tablet,Chewable
81 mg PO DAILY Qty: 30 0RF
Continued
valacyclovir 500 mg Tablet
500 mg PO HS
Discontinued
atorvastatin 20 mg Tablet
20 mg PO HS
estradiol [Alice] 0.05 mg/24 hr Patch Semiweekly
1 patch TRANSDERMAL SUWE
progesterone micronized 200 mg Capsule
See Rx Instructions .ROUTE .COMPLEX
Patient Comments:
05/31/24: Patient done for this month
Rx Instructions:
200 mg orally HS on days 1-12 each month
ibuprofen [Advil] 200 mg Tablet
400 mg PO Q6HPRN PRN (Reason: mild pain/WAT[place])
Discharge Orders:
Discharge Patient (As Directed); Ordered 06/03/24
Ordered By: Marcos Beach
Discharge Date and Time
Discharge Date/Time: 06/03/24 16:34
Print Language: [id number]
== END 2024-06-03 16:34 | disposition home or self-care (01) | DRG 65 ==
LOC: 4 EAST ACU 15:04
PROVIDERS: ADMITTING PHYSICIAN Internal Medicine; ATTENDING PHYSICIAN Internal Medicine; CONSULT PHYSICIAN Psychiatry & Neurology Clinical Neurophysiology; EMERGENCY PHYSICIAN Student in an Organized Health Care Education/Training Program; FAMILY PHYSICIAN Nurse Practitioner Adult Health; OTHER PHYSICIAN Psychiatry & Neurology Neurology
DX: I63.012 Cerebral infarction due to thrombosis of left vertebral artery (principal); I16.1 Hypertensive emergency; Z79.02 Long term (current) use of antithrombotics/antiplatelets; Z79.82 Long term (current) use of aspirin; Z87.891 Personal history of nicotine dependence
CPT/HCPCS: 70450; 70496; 70498; 70548; 70551; 80048; 80053; 80061; 83036; 85025; 85027; 92526; 92610; 93005; 93306; 96374; 96375; 97112; 97116; 97163; 97167; 97535; 99285; A9585; Q9967